=== PATIENT | male | born 1950 | race Caucasian/White ===

== ENCOUNTER 2016-09-20 06:42 | Observation (INO) | payer OTHER, BC, MEDICARE ==
[~2016-09-20] VITALS: Ht 177.8 cm; Wt 76.7 kg
[~2016-09-20 06:42] MED LIST: ACIPHEX20 MG; CIPRO500 M1; CLEOCIN300 MG PO; DILAUDID2 MG PO; KEFLEX500 MG PO; SOMA250 MG; TORADOL10 MG; VICODIN,LORT1 TABLET
[2016-09-20 07:31] LABS: BASOPHIL COUNT 0.1 K/uL (0-0.1); EOSINOPHIL (%) 2.6 % (0-5); EOSINOPHIL COUNT 0.2 K/uL (0-0.3); HEMATOCRIT 40.2 % (38.0-50.0); IMMATURE GRANULOCYTE (%) 0.3 % (0.0-0.7); INSTRUMENT ABS NEUTROPHIL CT 4.3 K/uL; LYMPHOCYTE COUNT 1.3 K/uL (1.0-2.8); MCH 27.8 PG (29.0-34.0); MCHC 32.6 G/DL (30.0-36.0); MCV 85.2 FL (86-99); MONOCYTE (%) 8.5 % (3-12); MONOCYTE COUNT 0.6 K/uL (0-0.8); NEUTROPHIL (%) 67.2 % (45-76); NEUTROPHIL COUNT 4.3 K/uL (1.8-6.4); PLATELET COUNT 245 K/uL (156-360); RBC DIS.WIDTH-CV 12.8 % (11.8-14.6); RBC DIS.WIDTH-SD 39.6 % (39-53); RED BLOOD COUNT 4.72 M/uL (4.00-5.50); WHITE BLOOD COUNT 6.4 K/uL (4.1-10.2)
[2016-09-20 07:40] LABS: CHLORIDE 110 mEq/L (99-109); POTASSIUM 4.2 mEq/L (3.7-5.4); SODIUM 143 mEq/L (136-147)
[2016-09-20 07:41] LABS: INTER. NORMALIZED RATIO 1.1; PROTHROMBIN TIME 10.7 (9.2-11.2); PTT 28.5 (25-32)
[2016-09-20 07:42] LABS: GLUCOSE 82 mg/dL (70-99)
[2016-09-20 07:43] LABS: ANION GAP 9 MEQ/L (2-14)
[2016-09-20 07:46] LABS: GFR ESTIMATE (CALCULATED) > 59 mL/min/
[2016-09-20 07:51] LABS: TROP-I INTERPRETATION NEGATIVE; TROPONIN-I < 0.01 ng/mL (0.0-0.30)
[2016-09-20 08:28] LABS: UREA NITROGEN (BUN) 16 mg/dL (9-23)
[2016-09-20] MEDS ORDERED: ACIPHEX20 MG PO (12:31)
[2016-09-20] MEDS ORDERED: SOMA250 MG PO (12:31)
[2016-09-20] MEDS ORDERED: LIDODERM 5% P1 PATCH TD (12:32)
[2016-09-20] MEDS ORDERED: ASPIRIN325 MG PO (12:32)
[2016-09-20] MEDS ORDERED: NORCO 7.5/321 TABLET PO (12:32)
[2016-09-20] MEDS ORDERED: OMEGA FISH O PO (12:33)
[2016-09-20] MEDS ORDERED: CO Q-10100 MG PO (12:33)
[2016-09-20] MEDS ORDERED: FLONASE16 G1 BOTH NARES (12:34)
[2016-09-20] MEDS ORDERED: [UNRECOGNIZED DRUG - OTHER] PO (12:36)
[2016-09-20 12:56] VITALS: BP 159/82
[2016-09-20 16:47] VITALS: BP 133/68
[2016-09-20 20:30] VITALS: BP 124/72
[2016-09-20 23:44] VITALS: BP 115/59
[2016-09-21 04:01] VITALS: BP 125/65
[2016-09-21 05:59] LABS: HDL CHOLESTEROL 44 MG/DL (Desirable>=40); LDL CHOLESTEROL 158 mg/dL (Desirable<100); NON-HDL CHOLESTEROL 186 mg/dL (Desirable<160); SAMPLE HEMOLYSIS CHECK 0; SAMPLE ICTERIC CHECK 0; SAMPLE LIPEMIA CHECK 0; TOTAL CHOLESTEROL 230 mg/dL (Desirable<200); TRIGLYCERIDES 140 MG/DL (Normal: <150)
[2016-09-21 06:52] LABS: Estimated Average Glucose 137 mg/dL (70-123); HEMOGLOBIN A1c (GLYCOHEMOGLOB) 6.4 % HGB (Below 5.7)
[2016-09-21 07:28] VITALS: BP 140/68
[2016-09-21 10:50] VITALS: BP 139/77
[2016-09-21] MEDS ORDERED: ATORVASTATIN CA40 MG PO (11:13)
[2016-09-21] MEDS ORDERED: CARVEDILOL3.125 MG PO (11:14)
== END 2016-09-21 12:53 | disposition home or self-care (01) ==
LOC: EME 06:42 → EDOF 09:41 → 5WEST 09:41 → EDOF 09:41 → 5WEST 12:41
PROVIDERS: Emergency Medicine
DX: I63.9 Cerebral infarction, unspecified (principal); I10 Essential (primary) hypertension; K21.9 Gastro-esophageal reflux disease without esophagitis; N40.0 Benign prostatic hyperplasia without lower urinary tract symptoms; Z96.653 Presence of artificial knee joint, bilateral; Z82.49 Family history of ischemic heart disease and other diseases of the circulatory system
CPT/HCPCS: 70450; 70551; 71010; 80048; 80061; 83036; 84484; 85025; 85610; 85730; 93005; 93306; 93880; 99281; 99285; G0378; J1650